=== PATIENT | male | born 1985 | race Caucasian/White ===

== ENCOUNTER 2018-10-17 06:19 | Day surgery (SDC) | payer OTHER ==
[2018-10-17 07:19] LABS: ADD MAN DIFF? NO
[2018-10-17 07:25] LABS: WHITE BLOOD COUNT 6.4 10^3/ul (4.8-10.8)
[2018-10-17 07:25] LABS: BASOPHILS % 0.6 % (0.0-2.0); EOSINOPHILS # 0.3 10^3/ul (0.0-0.5); HEMATOCRIT 44.4 % (42.0-52.0); HEMOGLOBIN 14.5 g/dl (14.0-18.0); LYMPHOCYTES # 2.6 10^3/ul (0.8-2.9); LYMPHOCYTES % 39.8 % (15.0-51.0); MEAN CORPUSCULAR HEMOGLOBIN 26.9 pg (29.0-33.0); MEAN CORPUSCULAR HGB CONC 32.7 g/dl (32.0-37.0); MEAN CORPUSCULAR VOLUME 82.2 fl (82.0-101.0); MEAN PLATELET VOLUME 9.3 fl (7.4-10.4); MONOCYTE # 0.7 10^3/ul (0.3-0.9); MONOCYTES % 11.1 % (0.0-11.0); NEUTROPHIL # 2.8 10^3/ul (1.6-7.5); PLATELET COUNT 326 10^3/UL (140-415); RED CELL DISTRIBUTION WIDTH 13.2 % (11.5-14.5)
[2018-10-17] MEDS ORDERED: IODIXANOL LOCM 100 ML BTL (07:33)
[2018-10-17] MEDS ORDERED: LIDOCAINE 1% (MDV) 20 ML INJ (07:33)
[2018-10-17] MEDS ORDERED: MIDAZOLAM 1 MG/ML 2 ML INJ (07:34)
[2018-10-17] MEDS ORDERED: NITROGLYCERIN (IC) 100 MCG/ML INJ (07:34)
[2018-10-17] MEDS ORDERED: VERAPAMIL 5 MG INJ (07:34)
[2018-10-17] MEDS ORDERED: FENTAnyl 50 MCG/ML VIAL (07:34)
[2018-10-17 07:41] LABS: ANION GAP 8 (5-13); BLOOD UREA NITROGEN 19 mg/dl (7-20); CALCIUM 9.5 mg/dl (8.4-10.2); CARBON DIOXIDE 27 mmol/L (21-31); CHLORIDE 108 mmol/L (97-110); Estimated GFR > 60 mL/min (>60); GLUCOSE 103 mg/dl (70-220); INR 0.92; PROTIME 12.5 Sec (11.9-14.9); SODIUM 143 mmol/L (135-144)
[2018-10-17 07:42] LABS: PARTIAL THROMBOPLASTIN TIME 27.4 Sec (23.0-35.0)
[2018-10-17] MEDS ORDERED: SOD CHLORIDE 0.9% 1,000 ML IV (08:40)
[2018-10-17] MEDS ORDERED: ONDANSETRON 4 MG INJ IV (09:00)
[2018-10-17] MEDS ORDERED: AL HYDROX/MG HYDROX/SIMETH 30 ML CUP PO (09:00)
[2018-10-17] MEDS ORDERED: ACETAMINOPHEN 325 MG TAB PO (09:00)
== END 2018-10-17 13:35 | disposition home or self-care (01) ==
LOC: CCL 06:19 → SDS 06:19 → CCL 13:35
DX: R07.9 Chest pain, unspecified (principal); R94.39 Abnormal result of other cardiovascular function study
CPT/HCPCS: 80048; 85025; 85610; 85730; 93005; 93458